=== PATIENT | female | born 1985 | race African-American/Black ===

== ENCOUNTER 2018-09-27 18:58 | Emergency (ER) | payer BC ==
[~2018-09-27] VITALS: Ht 167.6 cm; Wt 103.9 kg
[2018-09-27] MEDS ORDERED: KEFLEX500 M1 PO (20:02)
[2018-09-27 20:23] VITALS: BP 148/91
== END 2018-09-27 20:23 | disposition home or self-care (01) ==
LOC: M.ERS 18:58
DX: S61.211A Laceration without foreign body of left index finger without damage to nail, initial encounter (principal); Z88.2 Allergy status to sulfonamides; W26.0XXA Contact with knife, initial encounter; Y93.89 Activity, other specified; Y92.89 Other specified places as the place of occurrence of the external cause; Y99.8 Other external cause status

== ENCOUNTER 2018-10-10 16:02 | Emergency (ER) | payer BC ==
[~2018-10-10] VITALS: Ht 170.2 cm; Wt 104.3 kg
[~2018-10-10 16:02] MED LIST: KEFLEX500 M1 PO
[2018-10-10] MEDS ORDERED: BIRTH CONTROL (16:10)
[2018-10-10 16:22] VITALS: BP 148/96
== END 2018-10-10 16:22 | disposition home or self-care (01) ==
LOC: M.ERS 16:02
DX: S61.210D Laceration without foreign body of right index finger without damage to nail, subsequent encounter (principal); X58.XXXD Exposure to other specified factors, subsequent encounter; Z88.2 Allergy status to sulfonamides